=== PATIENT | female | born 1985 | race Asian ===

== ENCOUNTER 2022-03-05 14:30 | Emergency (ER) | payer BC, SELFPAY ==
[2022-03-05 14:57] VITALS: BP 119/81; PULSE 112; RESP 18; TEMP 38.4; O2SAT 98; BMI 23.4
[2022-03-05 15:46] LABS: Strep A DNA Probe* DETECTED (Not Detectd)
[2022-03-05 15:59] LABS: PCR FLU A POSITIVE PCR FLU A (Negative); PCR FLU B Negative PCR FLU B (Negative)
[2022-03-05 16:06] LABS: SARS PCR* Negative SARS-CoV-2 (Negative)
[2022-03-05 16:20] VITALS: PULSE 122; O2SAT 97
--- NOTE | 2022-03-05 16:22 | ED.GENADULT ---
HPI - General Adult General Chief complaint: Fever Stated complaint: Body ache, sore throat Time Seen by Provider: 03/05/22 15:46 Source: patient Mode of arrival: ambulatory Limitations: no limitations History of Present Illness HPI narrative: 37-year-old female coming in today complaining of fever, body aches and sore throat that started today. Daughter has exact same symptoms. Patient denies any shortness of breath or chest pain. No cough or diarrhea. Generally healthy, no medications. Related Data Previous Rx's Medication Instructions Recorded amoxicillin 500 mg capsule 500 mg PO BID 10 days #20 caps 03/05/22 Allergies Allergy/AdvReac Type Severity Reaction Status Date / Time No Known Drug Allergies Allergy Verified 03/05/22 15:00 Review of Systems Status of ROS: Reports: 10 or more systems reviewed and unremarkable except as noted in History and below PFSH [facility] Social History Smoking Status: Never smoker How often do you have a drink containing alcohol: never How often do you have six or more drinks on one occasion: Never AUDIT-C Alcohol total score: 0 Non-prescribed substance use: denies use Exam Narrative: Exam Narrative: Well-nourished well-developed patient in no acute distress. Alert and oriented. Answers questions appropriately. Mood and affect are appropriate. Thoughts are goal oriented and rational. No tangential or magical thinking noted. Patient speaks in full sentences without needing to catch her breath. HEENT: Normocephalic atraumatic. Pupils are equally round reactive to light. Extraocular muscles are intact. Conjunctivae are moist without any icterus noted. Moist mucous membranes. Posterior pharynx is normal. Neck is soft without any lymphadenopathy or thyromegaly. No masses are appreciated. Cardiovascular: Heart tachycardic with regular rhythm S1 and S2 are present without any murmurs. Lungs: Clear to auscultation bilaterally no wheezes rhonchi or rales are appreciated. Patient takes deep breaths without any discomfort. Abdomen: Soft and nontender nondistended with normal bowel sounds. Skin: Well perfused without any obvious rashes. Const: Vital Signs, click to edit/add: Vital Signs - 24 hr 03/05/22 14:57 03/05/22 16:20 Temperature 101.2 F H Pulse Rate [Right Pulse Oximeter] 112 H 122 H Respiratory Rate 18 Blood Pressure [Ri ght Upper Arm] 119/81 Pulse Oximetry 98 97 Oxygen Delivery Me thod Room Air Room Air Course Course Hospital Course: Strep and influenza both positive. Vital Signs Vital signs: Initial Vital Signs Temperature 101.2 F H 03/05/22 14:57 Temperature Source Temporal Artery Scan 03/05/22 14:57 Pulse Rate 112 H 03/05/22 14:57 Respiratory Rate 18 03/05/22 14:57 Blood Pressure 119/81 03/05/22 14:57 Blood Pressure Mean 93 03/05/22 14:57 Blood Pressure Position Sitting 03/05/22 14:57 Pulse Oximetry 98 03/05/22 14:57 Oxygen Delivery Method 03/05/22 14:57 Vital Signs Temperature 101.2 F H 03/05/22 14:57 Pulse Rate 112 H 03/05/22 14:57 Respiratory Rate 18 03/05/22 14:57 Blood Pressure 119/81 03/05/22 14:57 Pulse Oximetry 98 03/05/22 14:57 Oxygen Delivery Method 03/05/22 14:57 Temperature 101.2 F H 03/05/22 14:57 Pulse Rate 122 H 03/05/22 16:20 Respiratory Rate 18 03/05/22 14:57 Blood Pressure 119/81 03/05/22 14:57 Pulse Oximetry 97 03/05/22 16:20 Oxygen Delivery Method 03/05/22 16:20 Medical Decision Making MDM Narrative Medical decision making narrative: 37-year-old female with influenza a, daughter also has influenza a. Of note her strep also came back positive today. Unclear if this is a false-positive, however with a sore throat that she is having we will go ahead and treat with amoxicillin. We discussed Tamiflu risks and benefit, seeing the as patient is otherwise healthy, she did decline today. Lab Data Lab results reviewed: Yes I reviewed the patient's lab results Labs: Lab Results 03/05/22 03/05/22 Range/Units 14:46 14:46 SARS-CoV-2 (PCR) Negative SARS-CoV-2 (Negative) Influenza Type A (PCR) POSITIVE PCR FLU A A (Negative) Influenza Type B (PCR) Negative PCR FLU B (Negative) Group A Strep DNA DETECTED A (Not Detectd) Discharge Plan Discharge Clinical Impression: Influenza A, Acute streptococcal pharyngitis Patient Disposition: Home, Self-Care Condition: Stable Additional Instructions: Okay to take ibuprofen or Tylenol as needed for discomfort and fever. Make sure to stay well hydrated rest as much as possible. Prescriptions: New amoxicillin 500 mg capsule 500 mg PO BID 10 Days Qty: 20 0RF Follow Up/Referrals: Provider,Not a Local [Primary Care Provider] - Stand Alone Forms: [employer] Info Instructions
== END 2022-03-05 16:38 | disposition home or self-care (01) ==
PROVIDERS: Emergency Provider Family Medicine
DX: J10.1 Influenza due to other identified influenza virus with other respiratory manifestations (principal); J02.0 Streptococcal pharyngitis; Z20.822 Contact with and (suspected) exposure to COVID-19
CPT/HCPCS: 87631; 87651; 99283; 99284

== ENCOUNTER 2022-12-11 10:13 | Emergency (ER) | payer BC, SELFPAY ==
[2022-12-11 10:17] VITALS: BP 107/68; PULSE 78; TEMP 36.3; O2SAT 100; BMI 20.5
[2022-12-11 10:57] LABS: Ur HCG Qualitative* POSITIVE (Negative)
--- NOTE | 2022-12-11 10:57 | ED_ITS ---
HPI - General Adult General Time Seen by Provider: 10:57 Date Seen: 12/11/22 Chief complaint: Weakness Stated complaint: Weakness Time Seen by Provider: 12/11/22 10:21 Source: patient and site interpreter Mode of arrival: ambulatory History of Present Illness HPI narrative: Patient is a 37-year-old female with no pertinent medical problems presenting to the emergency department for weakness and concerned she is . She states for the past 4 days she has been nauseated and has not really eaten anything in only has been drinking small amounts of water. Has not had any fevers but admit s to chills. Denies abdominal pain, chest pain, shortness of breath, measured discharge, vaginal bleeding, dysuria. States she is feeling weak. She has been 4 times before and took a test this morning but she says was indeterminate and she is concerned she is . She has not had any sick contacts that she is aware of. States her only abdominal pain is in the suprapubic region over previous section scar that she states is always there and is not any different today. Somali site interpreter used for this encounter. Related Data Home Medications Medication Instructions Recorded Confirmed No Known Home Medications 12/11/22 12/11/22 Allergies Allergy/AdvReac Type Severity Reaction Status Date / Time No Known Drug Allergies Allergy Verified 12/11/22 10:39 Review of Systems Status of ROS: Reports: 10 or more systems reviewed and unremarkable except as noted in History and below [facility] Social History Smoking Status: Never smoker Do you use any of these nicotine containing products: None How often do you have a drink containing alcohol: never How often do you have six or more drinks on one occasion: Never AUDIT-C Alcohol total score: 0 Non-prescribed substance use: denies use Exam Narrative: Exam Narrative: Const: Well-nourished, Well-developed, in mild distress Eyes: PERRL, no conjunctival injection, and symmetrical lids ENMT: Atraumatic external nose and ears. Moist mucous membranes. Neck: Symmetric, trachea midline, No thyromegaly. CVS: RRR, No murmurs or gallops. Peripheral pulses 2+ and equal in all extremities RESP: Unlabored respiratory effort. Clear to auscultation bilaterally. GI: Suprapubic tenderness noted over scar. Nondistended, No rebound or guarding. MSK:Extremities w/o deformity, Normal Active ROM Skin: Warm, Dry. No rashes or lesions. Neuro: Normal Muscle tone, No focal neurological deficits. Psych: Awake, Alert, & Oriented x3. Appropriate mood and affect. Const: Vital Signs, click to edit/add: Vital Signs - 24 hr 12/11/22 10:17 12/11/22 12:41 Temperature 97.4 F L Pulse Rate [Right Pulse Oximeter] 78 Respiratory Rate 16 Blood Pressure [Ri ght Upper Arm] 107/68 Pulse Oximetry 100 Oxygen Delivery Me thod Room Air Course Vital Signs Vital signs: Initial Vital Signs Temperature 97.4 F L 12/11/22 10:17 Temperature Source Temporal Artery Scan 12/11/22 10:17 Pulse Rate 78 12/11/22 10:17 Blood Pressure 107/68 12/11/22 10:17 Blood Pressure Mean 81 12/11/22 10:17 Blood Pressure Position Sitting 12/11/22 10:17 Pulse Oximetry 100 12/11/22 10:17 Oxygen Delivery Method Room Air 12/11/22 10:17 Vital Signs Temperature 97.4 F L 12/11/22 10:17 Pulse Rate 78 12/11/22 10:17 Blood Pressure 107/68 12/11/22 10:17 Pulse Oximetry 100 12/11/22 10:17 Oxygen Delivery Method Room Air 12/11/22 10:17 Temperature 97.4 F L 12/11/22 10:17 Pulse Rate 78 12/11/22 10:17 Respiratory Rate 16 12/11/22 12:41 Blood Pressure 107/68 12/11/22 10:17 Pulse Oximetry 100 12/11/22 10:17 Oxygen Delivery Method Room Air 12/11/22 10:17 Medical Decision Making MDM Narrative Medical decision making narrative: Patient is a 37-year-old female presenting emergency department for weakness and concerned she might be . Symptoms began for past 4 days. Denies any abdominal pain. Her only abdominal pain is chronic pain over previous surgical site from 6 years ago. Has not been eating or drinking much. She took home test and it was positive. Her last menstrual period was October. She is concerned she is . Due to her generalize symptoms we will order a CBC, BMP, urinalysis, COVID/flu/RSV test. She was given L of lactated Ringer's and 4 mg of Zofran for her nausea. She was feeling better after this. Lab work is positive for . Urinalysis shows no concerning abnormalities. While there is bacteria in it it was also a dirty sample with no leukocyte esterase or nitrates. Patient's BMP shows no concerning abnormalities co was this flu/RSV is negative patient's hemoglobin slightly low at 9.9 which is showing no acute signs of bleeding. She states her anemia is chronic. she can follow up outpatient primary care provider about her hemoglobin. She is because of associated viral infection cannot be ruled out at this time. She is otherwise doing well though again be discharged home follow-up the primary care provider and [facility]. She is agreeable to this plan Lab Data Labs: Lab Results 12/11/22 12/11/22 12/11/22 Range/Units 10:44 11:55 11:58 WBC 6.34 (4.50-11.00) K/uL RBC 4.67 (4.00-5.20) m/uL Hgb 9.9 L (12.0-16.0) gm/dL Hct 33.7 (33.0-51.0) % MCV 72 L (80-100) fL MCH 21 L (26-34) pg MCHC 29 L (32-36) gm/dL RDW Coeff of Logan 18.0 H (11.5-15.5) % Plt Count 328 (140-440) K/uL Neut % (Auto) 53.1 (42.0-72.0) % Lymph % (Auto) 27.9 (20-44) % Laurel % (Auto) 15.3 H (0.0-11.0) % Eos % (Auto) 3.2 (0.0-7.0) % Baso % (Auto) 0.3 (0.0-3.0) % Neut # (Auto) 3.37 (1.7-7.0) K/uL Lymph # (Auto) 1.77 (0.90-2.90) K/uL Laurel # (Auto) 1.00 H (0.00-0.90) K/UL Eos # (Auto) 0.20 (0.00-0.50) K/uL Baso # (Auto) 0.02 (0.00-0.30) K/uL Abs Immat Gran (auto) 0.01 (0.00-0.30) K/uL Imm/Tot Granulo (auto) 0.2 % Sodium 136 (135-149) mmol/L Potassium 3.9 (3.6-5.1) mmol/L Chloride 103 (96-114) mmol/L Carbon Dioxide 19 L (20-32) mmol/L Anion Gap 14 (7-15) mEq/L BUN 10 (5-24) mg/dL Creatinine 0.4 L (0.5-1.5) mg/dL Estimated Creat Clear 138.32 Estimated GFR 131 ml/min Glucose 77 (60-115) mg/dL Calcium 9.5 (8.4-10.6) mg/dL Urine Color Yellow (Yellow) Urine Appearance Cloudy A (Clear) Urine pH 5.5 (5.0-8.5) Ur Specific Venus >= 1.030 (1.000-1.030) Urine Protein Negative (Negative) Urine Glucose (UA) Negative (Negative) Urine Ketones Negative (Negative) Urine Blood Negative (Negative) Urine Nitrite Negative (Negative) Urine Bilirubin Negative (Negative) Urine Urobilinogen 0.2 (0.2-1.0) Ur Leukocyte Esterase Negative (Negative) Urine RBC 0-2 (0-2) Urine WBC 0-2 (0-5) Ur Squamous Epith Cells Moderate A (None-Few) Amorphous Sediment Moderate A (None) Urine Bacteria Moderate A (None) Urine Mucus Few A (None) Urine HCG, Qual POSITIVE H (Negative) SARS-CoV-2 (PCR) Negative SARS-CoV-2 (Negative) Influenza Type A (PCR) Negative PCR FLU A (Negative) Influenza Type B (PCR) Negative PCR FLU B (Negative) RSV (PCR) Negative PCR RSV (Negative) Discharge Plan Discharge Clinical Impression: Anemia Qualifiers: Anemia type: unspecified type Qualified Code(s): D64.9 - Anemia, unspecified Qualifiers: Weeks of gestation: unspecified Qualified Code(s): Z34.90 - Encounter for supervision of normal , unspecified, unspecified trimester Patient Disposition: Home, Self-Care Condition: Stable Instructions: (ED) Additional Instructions: Follow-up in the next week with your primary care provider about your low hemoglobin. You are so follow-up with your [facility] regarding next steps. Return for any new or worsening symptoms. Prescriptions: No Action No Known Home Medications Follow Up/Referrals: Provider,Not a Local [Primary Care Provider] - Stand Alone Forms: [employer] Info Instructions
[2022-12-11 11:16] LABS: Appearance Urine Cloudy (Clear); Bilirubin Urine Negative (Negative); Blood Urine Negative (Negative); Color Urine Yellow (Yellow); Glucose Urine Negative (Negative); Ketones Urine Negative (Negative); Leukocyte Esterase Urine Negative (Negative); Nitrite Urine Negative (Negative); Protein Urine Negative (Negative); Specific Gravity Urine >= 1.030 (1.000-1.030); Urobilinogen Urine 0.2 (0.2-1.0); pH Urine 5.5 (5.0-8.5)
[2022-12-11 11:28] LABS: Amorphous Sediment Urine Moderate; Bacteria Urine Moderate; Mucus Urine Few; RBC Urine 0-2 (0-2); Squamous Epithelial Cell Urine Moderate (None-Few); WBC Urine 0-2 (0-5)
[2022-12-11] MEDS: ONDANSETRON 2 MG/ML inj 4 MG IVP (12:02)
[2022-12-11] MEDS: LACTATED RINGERS 1000 ML 1,000 ML IV (12:03)
[2022-12-11 12:06] LABS: Basophils Absolute Auto 0.02 K/uL (0.00-0.30); Basophils Percent Auto 0.3 % (0.0-3.0); Eosinophils Percent Auto 3.2 % (0.0-7.0); Hematocrit 33.7 % (33.0-51.0); Hemoglobin* 9.9 gm/dL (12.0-16.0); Immature Granulocytes Abs Auto 0.01 K/uL (0.00-0.30); Immature Granulocytes Pct Auto 0.2 %; Lymphocytes Absolute Auto 1.77 K/uL (0.90-2.90); Lymphocytes Percent Auto 27.9 % (20-44); Mean Corpuscular HGB Conc 29 gm/dL (32-36); Mean Corpuscular Hemoglobin 21 pg (26-34); Mean Corpuscular Volume 72 fL (80-100); Monocytes Percent Auto 15.3 % (0.0-11.0); Neutrophils Absolute Auto 3.37 K/uL (1.7-7.0); Neutrophils Percent Auto 53.1 % (42.0-72.0); Platelet Count* 328 K/uL (140-440); Red Blood Count 4.67 m/uL (4.00-5.20); White Blood Count* 6.34 K/uL (4.50-11.00)
[2022-12-11 12:26] LABS: Slide Review Reflex No
[2022-12-11 12:28] LABS: Chloride* 103 mmol/L (96-114); Sodium* 136 mmol/L (135-149)
[2022-12-11 12:29] LABS: Potassium* 3.9 mmol/L (3.6-5.1)
[2022-12-11 12:31] LABS: Creatinine* 0.4 mg/dL (0.5-1.5); Est. Creatinine Clearance* 138.32; Estimated Glomerular Filt Rate 131 ml/min
[2022-12-11 12:32] LABS: Anion Gap 14 mEq/L (7-15); Blood Urea Nitrogen* 10 mg/dL (5-24); Calcium* 9.5 mg/dL (8.4-10.6); Carbon Dioxide* 19 mmol/L (20-32); Glucose* 77 mg/dL (60-115)
[2022-12-11 12:41] VITALS: RESP 16
[2022-12-11 12:46] LABS: PCR FLU A Negative PCR FLU A (Negative); PCR FLU B Negative PCR FLU B (Negative); PCR RSV Negative PCR RSV (Negative); SARS PCR* Negative SARS-CoV-2 (Negative)
== END 2022-12-11 13:32 | disposition home or self-care (01) ==
PROVIDERS: Emergency Provider Student in an Organized Health Care Education/Training Program
DX: O99.019 Anemia complicating pregnancy, unspecified trimester (principal)
CPT/HCPCS: 36415; 80048; 81001; 81025; 85025; 87086; 87631; 96361; 96374; 99283; 99284; J2405; J7120

== ENCOUNTER 2024-08-19 14:34 | Day surgery (SDC) | payer BC, SELFPAY ==
[2024-08-19] VITALS (25 sets, daily range): BP systolic 115–157; BP diastolic 75–96; PULSE 64–101; RESP 12–16; TEMP 36.6–37.2; O2SAT 94–100; BMI 20.7
[2024-08-19 14:59] LABS: Ur HCG Qualitative* Negative (Negative)
--- NOTE | 2024-08-19 15:16 | P.GSHP_ITS ---
History of Present Illness History of Present Illness Date Seen: 08/19/24 Chief complaint: Exam under Anesthesia Narrative: Evelyn Singletary is a 39 year old female presented to urgent care and then was seen in surgery clinic for evaluation of perianal pain. Patient was seen by Dr. Howell in clinic and was diagnosed with thrombosed hemorrhoids. Patient then underwent exam under anesthesia with 2 quadrant external hemorrhoidectomy. Patient is admitted to the hospital for pain control and workup of her anemia. Patient's anemia has been there ?for a long time?. Patient states that she gets short of breath when she is working or walking. She also feels tired. She denies anyone working up her anemia. She does have monthly periods and those are usually heavy. Review of Systems Narrative: General: no fevers HENT: no problems swallowing CV: no shortness of breath Resp: no cough GI: No nausea, vomiting, abdominal pain : no dysuria, no increased urinary frequency, no hematuria Skin: no new rashes Musculoskeletal: no back pain Neuro: no muscle weakness Psyche: no depression, no anxiety PFSH [facility] Surgical History (Updated 08/19/24 @ 15:18 by Enrique Galvin MD) History of section, low transverse ?Z98.891 - History of uterine scar from previous surgery (ICD-10) Social History What is your current living situation?: I presently have a place to live In the past 12 months, utilities in danger of being shut off: no In the past 12 mos, have been you worried that your food would run out before you had money to buy more?: never true In the past 12 mos, the food you bought just didn't last and you didn't have money to buy more?: never true Smoking Status: Never smoker Do you use any of these nicotine containing products: None How often do you have a drink containing alcohol: never How often do you have six or more drinks on one occasion: Never AUDIT-C Alcohol total score: 0 Non-prescribed substance use: denies use How often does anyone, including family, friends and others, physically hurt you : never How often does anyone, including family, friends and others, insult or talk down to you: never How often does anyone, including family, friends and others, threaten you with harm: never How often does anyone, including family, friends and others, scream or curse at you: never Are you using contraception or practicing any form of control: No service: No Meds Home Medications and Allergies Home Medications ?Medication ?Instructions ?Recorded ?Confirmed ?Type ibuprofen [Advil] PO 08/19/24 08/19/24 History Allergies Allergy/AdvReac Type Severity Reaction Status Date / Time No Known Drug Allergies Allergy Verified 08/19/24 13:40 Exam Narrative: Exam Narrative: General appearance: Alert, cooperative, and in no distress Pulmonary: Chest symmetric, lungs clear bilaterally Cardiovascular Heart: Regular rate and rhythm, S1, S2, no murmurs/rubs/gallops rectal exam was not performed prior to patient coming to the operating room as this was performed in clinic by Dr. Howell. Psychiatric: Alert, cooperative, normal affect. Progress Note:A&P Assessment and plan (1) Thrombosed hemorrhoids: Status: Acute Plan 39-year-old female presents with thrombosed external hemorrhoids. Patient will be admitted to the hospital postoperatively for pain control. I also will consult the hospitalist for workup of her anemia.
[2024-08-19] MEDS: SODIUM CHLORIDE 0.9 % (FLUSH) 10 ML SYRINGE IVF (15:23)
[2024-08-19] MEDS: LACTATED RINGERS 1000 ML 1,000 ML 100 ML IV (15:23)
[2024-08-19] MEDS: BUPIVACAINE LIPOSOME 133 MG/10 ML INJ INFILTRATI (16:02)
[2024-08-19] MEDS: BUPIVACAINE 0.25% 30 ML 10 ML INJECTION (16:02)
[2024-08-19] MEDS: BACITRACIN OINTMENT BULK TUBE 1 APPLIC TOPICAL (16:11)
--- NOTE | 2024-08-19 16:37 | PM.GSPRC ---
Operative Note Date of procedure: 08/19/24 Pre-op diagnosis: 1. Thrombosed external hemorrhoids. Post-op diagnosis: Same Type of Procedure: 1. Exam under anesthesia with 2 quadrant external hemorrhoidectomy. Indications: 39-year-old female was seen in clinic for evaluation of perianal pain for 3 days. Patient states that the pain was severe. She continued to have bowel movements. She was seen in urgent care and then was referred to surgery Clinic. On clinical exam she was found to have external thrombosed necrotic hemorrhoids. Given patient's clinical history and her physical exam, exam under anesthesia with external hemorrhoidectomy was recommended. The procedure was discussed in detail. The risks associated procedure including infection, bleeding, the need for additional procedures, and prolonged pain were all discussed with the patient, she agreed to proceed. Procedure Description: After discussing the risks and benefits of the procedure, the patient signed informed consent.? Patient was brought into the operating room. The patient was then intubated by anesthesia and placed prone on the operating table with all pressure points padded.?? The operative site was then prepped and draped in the usual sterile fashion.? A time-out was then performed. Patient's perianal exam revealed edematous circumferential external hemorrhoidal tissue with a prolapsed necrotic thrombosed hemorrhoid right posterior laterally and posterior midline. Anoscopy was performed and did not reveal anal masses or enlarged other internal hemorrhoids. The prolapsed external hemorrhoid right laterally was in continuation with the enlarged internal hemorrhoid. I then proceeded with 2 quadrant hemorrhoidectomy. I first started right posterior laterally. The thrombosed hemorrhoid right posterior laterally was approximately grape sized. An elliptical incision was made with a needle tip electrocautery from the anoderm up into the anal canal just above the dentate line. Careful dissection of the hemorrhoid complex was done in the plane between the internal anal sphincter and the submucosal vascular plexus up to just above the dentate line. The surrounding tissues were edematous and care was taken not to injure the sphincter fibers. Having established the proper plane, the hemorrhoidal tissue was then excised with the Ligasure device and sent to Pathology for analysis. Similarly the external hemorrhoid posterior midline that was at least 50% the size of the right posterolateral hemorrhoid was excised with cautery and LigaSure device. The incision was also closed with a running 3-0 chromic suture. Pressure was held for hemostasis. A mixture of Marcaine and Exparel was injected for bilateral pudendal nerve block and perianally. No bleeding was seen. A pressure dressing was inserted into the anal canal. This pressure dressing was protruding through the anal canal and was to be removed in PACU. Sterile dressings were then applied outside of the anus. ? The patient was then woken and transported to the recovery area in stable condition. ? The patient tolerated the procedure well. Findings: Thrombosed necrotic external hemorrhoid right posterior laterally and posterior midline. Circumferential edematous external hemorrhoidal tissue. Anesthesia: GETA Surgeon: Enrique Galvin MD Estimated blood loss (mL): 5 Additional Specimen Information: 1. External thrombosed hemorrhoids. Condition: stable Disposition: PACU
--- NOTE | 2024-08-19 16:45 | P.ANES_ITS ---
Anesthesia Charges Start Date/Time Anesthesia Start Date: 08/19/24 Anesthesia Start Time: 15:27 Stop Date/Time Anesthesia Stop Date: 08/19/24 Anesthesia Stop Time: 16:43 Coding CPT Codes CPT Codes: ANESTH ANORECTAL SURGERY - 66311 ([id number]) P1 - NORMAL HEALTHY PATIENT, QZ - SPECIALIST ICU SVC W/O SEAMER OPERATOR BY
--- NOTE | 2024-08-19 16:45 | W.ANESCHARGE ---
Anesthesia Charges Start Date/Time Anesthesia Start Date: 08/19/24 Anesthesia Start Time: 15:27 Stop Date/Time Anesthesia Stop Date: 08/19/24 Anesthesia Stop Time: 16:43 Coding CPT Codes CPT Codes: ANESTH ANORECTAL SURGERY - 93369 ([id number]) P1 - NORMAL HEALTHY PATIENT, QZ - HYDROGEN POWER PLANT ENGINEER SVC W/O REHABILITATION SPECIALIST BY
[2024-08-19] MEDS: fentaNYL 100 MCG/2 ML inj 50 MCG IVP ×2 (17:02→17:21)
[2024-08-19] MEDS: ONDANSETRON 2 MG/ML inj 4 MG IVP (17:03)
--- NOTE | 2024-08-19 17:22 | SUR.PHASEI ---
RECTAL PACKING REMOVED AT 17:22 PER K.E.
[2024-08-19] MEDS: HYDROmorphone 0.5 mg/0.5 ml inj IVP ×2 (18:10→21:16)
[2024-08-19 18:37] LABS: Lab Add On Test New Spec Needed
--- NOTE | 2024-08-19 19:24 | PC.NURSE ---
End of shift-- pt arrived from PACU at approximately 1749. Alert and oriented, but drowsy. Canadian speaking and ipad superintendent service was utilized. VSS and pt is afebrile. SPO2 maintained >90% on RA. Pt c/o pain which she rated 10 out of 10 at arrival and tears were noted on pt's cheeks. Pt was given 0.5mg Dilauded. When returned to reassess, pt stated that she had partial relief but now also had a headache. When returned with [place], pt was fast asleep and has been sleeping since. Report to MARTHA Reardon.
[2024-08-19 20:38] LABS: Ferritin* 4.1 ng/mL (6.24-137.0)
[2024-08-19 20:41] LABS: Iron* 24 ug/dL (37-170)
[2024-08-19 20:50] LABS: Percent Iron Saturation 5 % (20-50); Total Iron Binding Capacity 441 ug/dL (265-497)
--- NOTE | 2024-08-19 21:04 | PM.EN ---
Chart Event Note Date Seen: 08/19/24 Chart Event Note: Chart review: Patient admitted for perianal pain caused by thrombosed external hemorrhoids. Take to the OR by Dr. Galvin for hemorrhoidectomy. Incidentally noted to have anemia with a hemoglobin of 7.2. MCV is 66 and RDW is 19.1. I ordered iron studies which show iron of 24 and a TIBC of 441 giving a iron saturation of 5% and a ferritin of 4.1. I reviewed old records indicating that her hemoglobin was 9.9 and MCV was 72 on 12/11/2022. Iron deficiency anemia is the diagnosis. In a 39-year-old menstruating woman this is most likely menstrual blood loss. I did not do testing for occult GI bleeding due to hemorrhoids surgery. Recommend iron replacement and outpatient follow-up with Gynecology if having significant menstrual bleeding or for GI evaluation if evidence of GI bleeding.
[2024-08-19] MEDS: polyethylene glycoL 3350 17 GM PACK PO (21:40)
[2024-08-19] MEDS: HYDROCODONE-ACETAMIN 5-325 MG 1 TAB PO (21:40)
[2024-08-20] VITALS (8 sets, daily range): BP systolic 103–120; BP diastolic 61–74; PULSE 64–81; RESP 16–18; TEMP 37.1–37.7; O2SAT 99–100
[2024-08-20] MEDS: HYDROCODONE-ACETAMIN 5-325 MG 1 TAB PO ×3 (02:56→13:06)
--- NOTE | 2024-08-20 06:26 | PC.NURSE ---
Shift note: Patient is doing well with A1, but moves very careful and slow due to pain. She reported pain between 5 and 7. PRN pain medication given. Ipad science writer use. Patient had urinary frequency. Alert and oriented. Vitally stable Tolerated clear liquid and some Ehsan crackers. No rectal bleeding observed.
[2024-08-20 08:38] LABS: Hematocrit 25.6 % (33.0-51.0); Mean Corpuscular HGB Conc 29 gm/dL (32-36); Mean Corpuscular Hemoglobin 19 pg (26-34); Mean Corpuscular Volume 65 fL (80-100); Platelet Count* 380 K/uL (140-440); Red Blood Count 3.94 m/uL (4.00-5.20); White Blood Count* 11.03 K/uL (4.50-11.00)
[2024-08-20 08:40] LABS: Hemoglobin* 7.3 gm/dL (12.0-16.0)
[2024-08-20 08:41] LABS: Slide Review Reflex No
[2024-08-20] MEDS: polyethylene glycoL 3350 17 GM PACK PO (09:38)
--- NOTE | 2024-08-20 11:49 | P.DS_ITS ---
DS: Providers Provider Date Seen: 08/20/24 Primary care physician: Not a Local Provider Attending Physician on discharge: Enrique Galvin MD DS: Diagnosis Discharge Diagnosis (1) Thrombosed hemorrhoids: Status: Acute DS: Summary Hospital Course Hospital Course: Patient was admitted to the hospital for pain control after she underwent to quadrant external hemorrhoidectomy. Patient did well. She complained of continued pain but the pain was improved. She was tolerating regular diet. She was evaluated by the hospitalist service and her anemia was thought to be iron deficiency anemia. A follow-up with [facility] cant[facility] surgery for heavy menstrual periods was recommended. Patient was also recommended to start iron replacement therapy. Time Spent with Patient Time attestation: Total time spent providing and/or coordinating discharge services: Exam Narrative: Exam Narrative: Perianal skin was examined and revealed circumferentially edematous tissue with no necrosis and no purulence. Patient was uncomfortable rolling in bed. Const: Vital Signs, click to edit/add: Vital Signs - 24 hr 08/19/24 15:14 08/19/24 16:38 08/19/24 16:45 Temperature 98.9 F 98.1 F Pulse Rate 84 98 101 H Pulse Rate [Pulse Oximeter] Respiratory Rate 16 16 16 Blood Pressure 143/82 H 131/92 H 135/93 H Blood Pressure [Le ft Arm] Pulse Oximetry 100 98 99 Oxygen Delivery Me thod Room Air Room Air Room Air 08/19/24 16:50 08/19/24 16:55 08/19/24 17:00 Temperature 98.0 F Pulse Rate 95 90 82 Pulse Rate [Pulse Oximeter] Respiratory Rate 14 14 14 Blood Pressure 134/87 142/91 H 138/92 H Blood Pressure [Le ft Arm] Pulse Oximetry 98 98 95 Oxygen Delivery Me thod Room Air Room Air Room Air 08/19/24 17:05 08/19/24 17:10 08/19/24 17:15 Temperature 98.2 F Pulse Rate 79 79 78 Pulse Rate [Pulse Oximeter] Respiratory Rate 14 14 14 Blood Pressure 137/90 H 136/96 H 130/90 H Blood Pressure [Le ft Arm] Pulse Oximetry 94 95 95 Oxygen Delivery Me thod Room Air Room Air Room Air 08/19/24 17:20 08/19/24 17:25 08/19/24 17:30 Temperature Pulse Rate 81 67 78 Pulse Rate [Pulse Oximeter] Respiratory Rate 12 12 12 Blood Pressure 131/92 H 136/91 H 145/86 H Blood Pressure [Le ft Arm] Pulse Oximetry 99 98 96 Oxygen Delivery Me thod Room Air Room Air 08/19/24 17:35 08/19/24 17:40 08/19/24 17:50 Temperature 98.0 F Pulse Rate 69 66 Pulse Rate [Pulse Oximeter] Respiratory Rate 14 14 Blood Pressure 141/93 H 134/88 Blood Pressure [Le ft Arm] Pulse Oximetry 97 98 Oxygen Delivery Me thod Room Air Room Air Room Air 08/19/24 18:00 08/19/24 18:15 08/19/24 18:30 Temperature 98.5 F Pulse Rate 64 70 71 Pulse Rate [Pulse Oximeter] Respiratory Rate 16 16 16 Blood Pressure 145/79 H 143/93 H 131/88 Blood Pressure [Le ft Arm] Pulse Oximetry 98 94 95 Oxygen Delivery Me thod Room Air Room Air Room Air 08/19/24 18:45 08/19/24 19:02 08/19/24 20:18 Temperature 98.8 F 98.8 F Pulse Rate 73 68 70 Pulse Rate [Pulse Oximeter] Respiratory Rate 16 16 16 Blood Pressure 127/89 115/82 127/81 Blood Pressure [Le ft Arm] Pulse Oximetry 96 96 97 Oxygen Delivery Me thod Room Air Room Air Room Air 08/19/24 20:21 08/19/24 21:30 08/19/24 22:32 Temperature 98.5 F 98.8 F 98 F Pulse Rate 68 69 65 Pulse Rate [Pulse Oximeter] Respiratory Rate 16 16 16 Blood Pressure 127/90 H 137/81 121/75 Blood Pressure [Le ft Arm] Pulse Oximetry 97 97 97 Oxygen Delivery Me thod Room Air Room Air Room Air 08/19/24 22:34 08/19/24 22:34 08/19/24 22:34 Temperature 98 F 98 F Pulse Rate 65 Pulse Rate [Pulse Oximeter] 65 Respiratory Rate 16 16 16 Blood Pressure 121/75 Blood Pressure [Le ft Arm] 121/75 Pulse Oximetry 97 97 97 Oxygen Delivery Me thod Room Air Room Air Room Air 08/19/24 23:30 08/20/24 02:49 Temperature 98.7 F 98.7 F Pulse Rate 65 Pulse Rate [Pulse Oximeter] 69 Respiratory Rate 16 16 Blood Pressure 157/89 H Blood Pressure [Le ft Arm] 120/71 Pulse Oximetry 97 99 Oxygen Delivery Me thod Room Air Room Air DS: Data Data Completed and Pending Labs on day of discharge: Labs from last 24 hours 08/20/24 08/19/24 08/19/24 08:06 Unknown 19:40 WBC 11.03 H RBC 3.94 L Hgb 7.3 L* Hct 25.6 L MCV 65 L MCH 19 L MCHC 29 L Plt Count 380 Iron 24 L TIBC 441 % Saturation 5 L Ferritin 4.1 L Urine HCG, Qual Negative Lab Acknowledgement Blood Type O Positive Antibody Screen NEGATIVE Crossmatch ([facility]) See Detail 08/19/24 18:26 WBC RBC Hgb Hct MCV MCH MCHC Plt Count Iron TIBC % Saturation Ferritin Urine HCG, Qual Lab Acknowledgement New Spec Needed A Blood Type Antibody Screen Crossmatch ([facility]) Discharge Plan Discharge Disposition: Home w/ Parent or Adult Discharging Surgeon: Enrique Galvin Follow-Up Appointment: [address] [facility] Prescriptions: New hydrocodone-acetaminophen 5-325 mg tablet 1 tab PO Q6H PRN (Reason: pain) Qty: 25 0RF polyethylene glycol 3350 [Miralax] 17 gram powder in packet 17 g PO BID Qty: 30 0RF No Action ibuprofen [Advil] PO Activity Level: No strenuous activity Activity Detail: Patient should avoid prolonged sitting. Patient should continue taking MiraLax twice a day for 2 weeks to avoid constipation. Sitz baths (warm water) 3 times a day and after each bowel movement. Avoid wiping after bowel movements. Okay to take ibuprofen in addition to [place] that was prescribed. Discharge Diet: Regular Patient Instructions: Deep Sedation (DC), Sitz Bath (DC), Hemorrhoidectomy (DC), Dr. Galvin's Post Hemorrhoidectomy Instructions Additional Instructions: Patient should make an appointment to see [facility]or for heavy menstrual bleeding. Patient should also start iron replacement 325 mg iron tablets daily for 3 months. Forms: Work/School Release Follow-up: Enrique Galvin MD [Staff Physician] - Discharge Orders: Discharge Order (Routine); Ordered 08/20/24 Ordered By: Enrique Galvin
[2024-08-20 14:49] LABS: Hemoglobin* 8.5 gm/dL (12.0-16.0)
--- NOTE | 2024-08-20 15:15 | P.IMPN_ITS ---
Assessment and Plan Assessment and plan (1) Anemia: Problem comment: Iron deficiency Incidentally noted to have anemia with a hemoglobin of 7.2. MCV is 66 and RDW is 19.1. I ordered iron studies which show iron of 24 and a TIBC of 441 giving a iron saturation of 5% and a ferritin of 4.1. I reviewed old records indicating that her hemoglobin was 9.9 and MCV was 72 on 12/11/2022. Iron deficiency anemia is the diagnosis. In a 39-year-old menstruating woman this is most likely menstrual blood loss. I did not do testing for occult GI bleeding due to hemorrhoids surgery. Recommend iron replacement and outpatient follow-up with Gynecology if having significant menstrual bleeding or for GI evaluation if evidence of GI bleeding Postop hemoglobin 7.3, symptomatic. Transfuse 1 unit PRBC, risks and benefits discussed. Recheck hemoglobin post transfusion 8.5. Initiate oral iron supplement b.i.d.. Continue postoperative MiraLax b.i.d. D/c instructions per General Surgery Outpatient follow-up with PCP for referral to Gynecology or GI if necessary for further evaluation Status: Inactive Total Time Spent Total Time Spent: Today I spent 45 minutes seeing the patient, reviewing [facility]panse and EPIC notes/diagnostics, discussing the care plan with our care time that includes social work, PT/OT, pharmacy, RT, senior living and documenting my impressions and plan in the medical record. Subjective Date Seen: 08/20/24 Interval history: Patient is seen with at bedside. Arabic manager research development online. POD#1 s/p hemorrhoidectomy. Having postoperative pain. No nausea vomiting. Hemoglobin 7.3, 7.[address] Galvin planned for transfusion post op. Discussed risks and benefits. Chronic anemia. Heavy menstrual periods reported. Symptomatic with FIELD, fatigue. Consents to transfusion. Exam Narrative: Exam Narrative: PHYSICAL EXAM General: Appears tired otherwise NAD HEENT: Normocephalic, atraumatic, sclera white, EOMI, oral mucosa moist Cardiovascular: RRR Pulmonary: No dyspnea Neurological: Alert, answering questions appropriately, cranial nerves intact, no focal findings Extremities: No gross joint deformity or swelling. AROMI. Neurovascularly intact Skin: Warm, dry. [place] tone Const: Vital Signs, click to edit/add: Vital Signs - 24 hr 08/19/24 16:38 08/19/24 16:45 08/19/24 16:50 Temperature 98.1 F Pulse Rate 98 101 H 95 Pulse Rate [Pulse Oximeter] Respiratory Rate 16 16 14 Blood Pressure 131/92 H 135/93 H 134/87 Blood Pressure [Le ft Arm] Pulse Oximetry 98 99 98 Oxygen Delivery Me thod Room Air Room Air Room Air 08/19/24 16:55 08/19/24 17:00 08/19/24 17:05 Temperature 98.0 F Pulse Rate 90 82 79 Pulse Rate [Pulse Oximeter] Respiratory Rate 14 14 14 Blood Pressure 142/91 H 138/92 H 137/90 H Blood Pressure [Le ft Arm] Pulse Oximetry 98 95 94 Oxygen Delivery Me thod Room Air Room Air Room Air 08/19/24 17:10 08/19/24 17:15 08/19/24 17:20 Temperature 98.2 F Pulse Rate 79 78 81 Pulse Rate [Pulse Oximeter] Respiratory Rate 14 14 12 Blood Pressure 136/96 H 130/90 H 131/92 H Blood Pressure [Le ft Arm] Pulse Oximetry 95 95 99 Oxygen Delivery Me thod Room Air Room Air Room Air 08/19/24 17:25 08/19/24 17:30 08/19/24 17:35 Temperature 98.0 F Pulse Rate 67 78 69 Pulse Rate [Pulse Oximeter] Respiratory Rate 12 12 14 Blood Pressure 136/91 H 145/86 H 141/93 H Blood Pressure [Le ft Arm] Pulse Oximetry 98 96 97 Oxygen Delivery Me thod Room Air Room Air 08/19/24 17:40 08/19/24 17:50 08/19/24 18:00 Temperature 98.5 F Pulse Rate 66 64 Pulse Rate [Pulse Oximeter] Respiratory Rate 14 16 Blood Pressure 134/88 145/79 H Blood Pressure [Le ft Arm] Pulse Oximetry 98 98 Oxygen Delivery Me thod Room Air Room Air Room Air 08/19/24 18:15 08/19/24 18:30 08/19/24 18:45 Temperature Pulse Rate 70 71 73 Pulse Rate [Pulse Oximeter] Respiratory Rate 16 16 16 Blood Pressure 143/93 H 131/88 127/89 Blood Pressure [Le ft Arm] Pulse Oximetry 94 95 96 Oxygen Delivery Me thod Room Air Room Air Room Air 08/19/24 19:02 08/19/24 20:18 08/19/24 20:21 Temperature 98.8 F 98.8 F 98.5 F Pulse Rate 68 70 68 Pulse Rate [Pulse Oximeter] Respiratory Rate 16 16 16 Blood Pressure 115/82 127/81 127/90 H Blood Pressure [Le ft Arm] Pulse Oximetry 96 97 97 Oxygen Delivery Me thod Room Air Room Air Room Air 08/19/24 21:30 08/19/24 22:32 08/19/24 22:34 Temperature 98.8 F 98 F Pulse Rate 69 65 Pulse Rate [Pulse Oximeter] Respiratory Rate 16 16 16 Blood Pressure 137/81 121/75 Blood Pressure [Le ft Arm] Pulse Oximetry 97 97 97 Oxygen Delivery Me thod Room Air Room Air Room Air 08/19/24 22:34 08/19/24 22:34 08/19/24 23:30 Temperature 98 F 98 F 98.7 F Pulse Rate 65 65 Pulse Rate [Pulse Oximeter] 65 Respiratory Rate 16 16 16 Blood Pressure 121/75 157/89 H Blood Pressure [Le ft Arm] 121/75 Pulse Oximetry 97 97 97 Oxygen Delivery Me od Room Air Room Air Room Air 08/20/24 02:49 08/20/24 11:47 08/20/24 11:52 Temperature 98.7 F 98.7 F Pulse Rate 77 Pulse Rate [Pulse Oximeter] 69 Respiratory Rate 16 16 16 Blood Pressure 116/62 Blood Pressure [Le ft Arm] 120/71 Pulse Oximetry 99 100 100 Oxygen Delivery Me thod Room Air Room Air Room Air 08/20/24 11:52 08/20/24 12:05 08/20/24 12:05 Temperature 98.7 F 98.7 F 99.0 F Pulse Rate 76 73 Pulse Rate [Pulse Oximeter] 77 Respiratory Rate 16 16 16 Blood Pressure 106/61 119/74 Blood Pressure [Le ft Arm] 116/62 Pulse Oximetry 100 100 100 Oxygen Delivery Me thod Room Air Room Air Room Air 08/20/24 13:00 08/20/24 13:30 08/20/24 14:02 Temperature 99.9 F H 99.4 F 99.0 F Pulse Rate 81 64 71 Pulse Rate [Pulse Oximeter] Respiratory Rate 16 16 16 Blood Pressure 117/64 108/70 103/72 Blood Pressure [Le ft Arm] Pulse Oximetry 100 100 100 Oxygen Delivery Me thod Room Air Room Air Room Air Labs Labs: Laboratory Results - last 24 hr 08/19/24 08/19/24 08/20/24 18:26 19:40 08:06 WBC 11.03 H RBC 3.94 L Hgb 7.3 L* Hct 25.6 L MCV 65 L MCH 19 L MCHC 29 L Plt Count 380 Iron 24 L TIBC 441 % Saturation 5 L Ferritin 4.1 L Lab Acknowledgement New Spec Needed A Blood Type O Positive Antibody Screen NEGATIVE Crossmatch ([facility]) See Detail 08/20/24 14:36 WBC RBC Hgb 8.5 L Hct MCV MCH MCHC Plt Count Iron TIBC % Saturation Ferritin Lab Acknowledgement Blood Type Antibody Screen Crossmatch ([facility])
[2024-08-20] MEDS: ACETAMINOPHEN 325 MG TABLET 650 MG PO (16:29)
--- NOTE | 2024-08-20 18:56 | PC.NURSE ---
Discharge - Pt alert, oriented, cooperative. Up with standby assistance and tolerating RA and regular diet/fluids. Pt spouse at bedside, appeared eager to provide care and support. [employer] on iPad used per pt request for education. Pt reported pain in anus, unable to rate on 1-10 scale. Given medication per MAR and ice pack to improve pt comfort. RN provided education related to pericare with pt and spouse verbalizing understanding. IV d/c with catheter intact, d/c education provided with pt and spouse verbalizing understanding. Pt d/c to home via wheelchair with spouse at approximately 1800.
== END 2024-08-20 18:00 | disposition home or self-care (01) ==
LOC: OR 14:51 → MEDSURG 18:02
PROVIDERS: Family Medicine; Physician Assistant; Visit Provider Surgery
PROC: (CPT 46320; principal; 2024-08-19 15:00)
DX: K64.5 Perianal venous thrombosis (principal); K62.89 Other specified diseases of anus and rectum; D50.0 Iron deficiency anemia secondary to blood loss (chronic); N92.0 Excessive and frequent menstruation with regular cycle; G89.18 Other acute postprocedural pain
CPT/HCPCS: 46320; 00902; 36415; 36430; 81025; 82728; 83540; 83550; 85018; 85027; 86850; 86900; 86901; 86922; 88304; A9270; J0330; J0665; J0666; J1100; J1171; J2405; J2704; J3010; J3490; J7120; P9016

== ENCOUNTER 2024-10-29 09:04 | Outpatient (CLI) | payer BC, SELFPAY | END 2024-10-29 09:05 | disposition home or self-care (01) | PROVIDERS: Visit Provider Family Medicine | DX: N92.0 Excessive and frequent menstruation with regular cycle (principal); D50.0 Iron deficiency anemia secondary to blood loss (chronic); R53.83 Other fatigue; Z79.899 Other long term (current) drug therapy | CPT/HCPCS: 80053; 82607; 82728; 83540; 83550; 84443 ==

== ENCOUNTER 2024-11-04 09:17 | Outpatient (CLI) | payer BC, SELFPAY ==
--- NOTE | 2024-11-04 09:15 | CRLHL7_ITS ---
For Patients: As a result of the Century Cures Act, medical imaging exams and procedure reports are released immediately into your electronic medical record. You may view this report before your referring provider. If you have questions, please contact your health care provider. INDICATION: EXCESSIVE AND FREQUENT MENSTRUATION COMPARISON: None. TECHNIQUE: 2D fine-scale and color Doppler images were acquired of the pelvis using a transabdominal and transvaginal approach. Transvaginal imaging performed to better visualize the endometrial stripe and ovaries. FINDINGS: Ill-defined heterogeneous echotexture within the uterine fundus. The endometrium is difficult to identify. The uterus measures 13.2 x 6.5 x 7.2 cm. The right ovary measures 3.1 x 1.0 x 2.2 cm in size and the left ovary measures 4.3 x 1.7 x 3.0 cm. The ovaries demonstrate normal arterial and venous blood flow on color Doppler analysis. There are no suspicious fluid collections within the cul-de-sac. IMPRESSION: Heterogeneous echotexture of the uterus representing either adenomyosis or fibroid. The endometrium is ill-defined and can not be measured. MRI recommended. Dictated by Issa Arndt MD @ 11/07/2024 9:06:03 PM (Electronically Signed)
== END 2024-11-04 09:18 | disposition home or self-care (01) ==
LOC: US 09:19
PROVIDERS: PCP Family Medicine; Visit Provider Family Medicine
DX: N92.0 Excessive and frequent menstruation with regular cycle (principal); D50.9 Iron deficiency anemia, unspecified
CPT/HCPCS: 76830; 76856

== ENCOUNTER 2024-11-18 15:58 | Outpatient (CLI) | payer BC, SELFPAY ==
[2024-11-21 04:56] LABS: HPV Source Cervix
[2024-11-23 16:40] LABS: Pap Test Digital Imaging Done
== END 2024-11-18 15:59 | disposition home or self-care (01) ==
PROVIDERS: PCP Family Medicine; Visit Provider Obstetrics & Gynecology
DX: Z12.4 Encounter for screening for malignant neoplasm of cervix (principal); Z11.51 Encounter for screening for human papillomavirus (HPV)
CPT/HCPCS: 87624; 87625; 88141; 88142; 88175